=== PATIENT | female | born 1945 | race Caucasian/White ===

== ENCOUNTER 2017-04-21 18:23 | Inpatient (IN) ==
[2017-04-21 19:30] LABS: Basophils # 0.1 K/mcL (0.0-0.2); Basophils % 0.4 %; Eosinophils # 0.1 K/mcL (0.0-0.6); Eosinophils % 1.1 %; Hematocrit 42.6 % (35.3-44.9); Hemoglobin 14.4 g/dL (11.5-15.4); Immature Granulocytes % 0.3 % (0-4); Lymphocytes # 1.9 K/mcL (0.6-4.6); Lymphocytes % 15.4 %; Mean Corpuscular HGB Conc 33.8 g/dL (31.6-35.5); Mean Corpuscular Hemoglobin 34.2 pg (28.0-33.3); Mean Corpuscular Volume 101.2 fL (83.0-100.0); Mean Platelet Volume 10.3 fL (9.4-12.4); Monocytes # 0.8 K/mcL (0.0-1.3); Monocytes % 6.2 %; Neutrophils # 9.5 K/mcL (1.6-8.9); Platelet Count 286 K/mcL (140-400); Red Blood Count 4.21 M/mcL (3.82-4.97); Red Cell Distribution Width 12.6 % (11.5-14.5); Segmented Neutrophils % 76.6 %
[2017-04-21 19:47] LABS: Alanine Aminotransferase 33 Units/L (0-55); Albumin 3.4 g/dL (3.5-5.0); Albumin/Globulin Ratio 0.8 (1.1-2.2); Alkaline Phosphatase 110 Units/L (38-126); Amylase 55 Units/L (25-125); Aspartate Amino Transferase 41 Units/L (5-34); BUN/Creatinine Ratio 17 (6-26); Bilirubin,Total 0.8 mg/dL (0.2-1.2); Blood Urea Nitrogen 11 mg/dL (7-20); Calcium 9.6 mg/dL (8.6-10.8); Carbon Dioxide 24 mEq/L (19-29); Chloride 105 mEq/L (98-109); Globulin 4.1 g/dL (2.4-3.5); Glucose 96 mg/dL (70-99); Lipase 22 Units/L (8-78); Osmolality,Calculated 283 (280-300); Potassium 3.7 mEq/L (3.5-4.5); Sodium 137 mEq/L (136-145); Total Protein 7.5 g/dL (6.0-8.3); eGFR For African Americans > 60 (> 60); eGFR For Non-African Americans > 60 (> 60)
--- NOTE | 2017-04-21 19:58 | Emergency Department Note ---
Disposition Clinical Impression: Colitis Disposition: Admitted As Inpatient Condition: Fair Time of Disposition: 23:37 General Adult HPI - General Chief complaint: ED Fever Stated complaint: C-diff fever Time Seen by Provider: 04/21/17 19:25 Source: patient Limitations: no limitations Nursing Notes Reviewed: Yes Vital Signs Reviewed: Yes - History of Present Illness HPI Narrative: Patient 70-year-old female who presents after several bouts of diarrhea started early this a.m. Patient states she was recently treated for C. difficile times a few weeks ago and was treated with metronidazole in hospital. Patient was sent home with continued outpatient treatment with antibiotic that she cannot remember. Patient completed home regimen of antibiotics. Patient states she had a brief resolution of symptoms for several days and then lost her appetite times one day ago then began to have repeated bouts of loose stools times this morning. Patient states she had 7 bouts of loose stool and began to see a change in stool composition and decided to come in for evaluation for fear of return of C. difficile. Patient states that she had a fever of 101.2 at home and took Tylenol a few hours before coming to the hospital. Pain Scale: 2 - Related Data Home Medications Medication Instructions Recorded Confirmed Aspirin Enteric Coated [Aspirin EC] 81 mg PO QAM 04/21/17 04/21/17 HYDROcodone/Acet 7.5/325 mg [[place] 1 tab PO BID PRN 04/21/17 04/21/17 7.5-325 mg] L. Acidophilus/Pectin, [place] 1 each PO QAM 04/21/17 04/21/17 [Acidophilus Probiotic Capsule] Quetiapine Fumarate [SEROquel] 100 mg PO 04/21/17 04/21/17 Simvastatin [Zocor] 40 mg PO 04/21/17 04/21/17 Sotalol [Betapace] 80 mg PO BID 04/21/17 04/21/17 Tizanidine HCl 4 mg PO TID PRN 04/21/17 04/21/17 Tolterodine Tartrate [Detrol] 1 mg PO BID 04/21/17 04/21/17 Trazodone HCl 100 mg PO 04/21/17 04/21/17 Venlafaxine HCl [Venlafaxine HCl 225 mg PO QAM 04/21/17 04/21/17 ER] raNITIdine HCl [Ranitidine HCl] 150 mg PO BID 04/21/17 04/21/17 Allergies Allergy/AdvReac Type Severity Reaction Status Date / Time Penicillins Allergy See Verified 04/21/17 18:50 Comments Review of Systems: Patient admits to fever, abdominal pain, diarrhea and fatigue. Patient denies chills, chest pain, shortness of breath, lightheadedness, dizziness, paresthesias, weakness. All systems ED: reviewed and negative except as stated. Review of Systems: As Per HPI Past Medical History - Past Medical History Attestation: Yes The following information was validated with the patient. Source: patient Medical history: Reports: hyperlipidemia, hypertension, SVT, other Psychiatric history: Reports: depression - Social History Smoking Status: Never smoker Smokeless Tobacco Status: No Alcohol use: Reports: none Drug use: Reports: none Physical Exam Vital Signs Temperature 99.7 F H 04/21/17 18:50 Pulse Rate 85 04/21/17 18:50 Respiratory Rate 20 04/21/17 18:50 Blood Pressure 128/76 04/21/17 18:50 O2 Sat by Pulse Oximetry 94 04/21/17 18:50 Temperature 99.3 F 04/21/17 23:34 Pulse Rate 90 04/21/17 23:34 Respiratory Rate 16 04/21/17 23:34 Blood Pressure 176/78 04/21/17 23:34 O2 Sat by Pulse Oximetry 94 04/21/17 23:34 Oxygen Delivery Oxygen Delivery Room Air -General Appearance: Patient is a 71-year-old female who is alert and oriented 3 and in no acute distress. Patient does not appear toxic. Patient does seem mildly uncomfortable secondary to GI discomfort. -Neurological exam: Cranial nerves III-12 intact, no focal deficits observed, strength equal 5/5 bilaterally in upper and lower extremities, cerebellar motion test negative. Negative loss of sensation - Head Head exam: atraumatic, normocephalic, normal inspection - Eye Eye exam: Present: normal appearance, PERRL, EOMI, negative for scleral icterus negative for conjunctival pallor - ENT ENT exam: normal exam, normal oropharynx, mucous membranes moist - Neck Neck exam: Present: normal inspection, full ROM, trachea midline, negative JVD. Patient able to place chin on chest and hyperextended neck without issue. Patient has no posterior cervical tenderness to palpation - Chest Chest inspection: Present: Patient has bilateral equal rise and fall of chest wall. Non-tender to palpation. - Respiratory Respiratory exam: Clear to auscultation bilaterally without wheezes rales or rhonchi Cardiovascular Cardiovascular exam: Present: regular rate, normal rhythm, normal heart sounds, without murmurs rubs or gallops. - Abdominal Exam Abdominal exam: Soft but tender to palpation in the left upper quadrant and right lower quadrant. Patient grimaces with deep palpation. Bowel sounds present normoactive in all 4 quadrants. Abdomen nondistended. No rebound tenderness. - Extremities Exam Extremities exam: Present: normal inspection, full ROM. Pulses equal regular bilaterally in upper and lower extremities no edema - Back Exam Back exam: Present: normal inspection, full ROM. Absent: tenderness, CVA tenderness (R), CVA tenderness (L) - Psychiatric Psychiatric exam: Present: normal affect, normal mood - Skin Skin exam: Present: warm, dry, intact, normal color - General Limitations: no limitations General appearance: alert Course - Reevaluation(s) Reevaluation #1: Patient seen and examined. Labs ordered. Patient not have any nausea or vomiting. Patient abdominal pain mild Time: 19:58 Vital Signs Temperature 99.7 F H 04/21/17 18:50 Pulse Rate 85 04/21/17 18:50 Respiratory Rate 20 04/21/17 18:50 Blood Pressure 128/76 04/21/17 18:50 O2 Sat by Pulse Oximetry 94 04/21/17 18:50 Temperature 99.3 F 04/21/17 23:34 Pulse Rate 90 04/21/17 23:34 Respiratory Rate 16 04/21/17 23:34 Blood Pressure 176/78 04/21/17 23:34 O2 Sat by Pulse Oximetry 94 04/21/17 23:34 Oxygen Delivery Oxygen Delivery Room Air Medical Decision Making - [facility] Narrative Medical decision making narrative: Patient was seen and examined. Precautions for C. difficile were placed prior to exam. Labs were ordered for concern over possible C. difficile reinfection, concern for ischemic bowel, pancreatitis. Patient is status post cholecystectomy, appendectomy. Patient's stool was checked and was soft but formed green in color. No signs of blood visualized. Amylase and lipase negative, lactate negative, hemoglobin 14.4, WBC 12.4 and we will continue to monitor with history of recent fevers and CT scan abdomen and pelvis which showed colitis. Patient's Electrolytes showed no abnormalities. Given patient's age, fever and colitis recommend admission at this time to start patient on treatment for oral vancomycin and Flagyl for possible reinfection of C. difficile and workup to investigate other etiologies concerning patient's colitis. Recommend patient be followed up by GI for possible endoscopy if necessary to investigate the colitis as well. Patient family has been briefed and agreed to treatment and plan. Patient was accepted for admission by hospitalist. My attending Dr. Acuna discussed patient's case with the hospitalist. - Medical Records Medical records reviewed: Yes I reviewed the patient's medical records. Lumbar MRI in September 2016 IMPRESSION: Grade 1 spondylolisthesis of L4 on L5 and L5 on S1. 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 Disc and osteophytes as well as facet and ligamentum flavum hypertrophy contribute to further stenosis of the thecal sac and narrowing of the neural foramina as discussed above. - Lab Data Lab results reviewed: Yes I reviewed the patient's lab results. Lab results narrative: Short CBC 04/21/17 Range/Units 19:22 WBC 12.4 H (4.3-11.1) K/mcL Hgb 14.4 (11.5-15.4) g/dL Hct 42.6 (35.3-44.9) % Plt Count 286 (140-400) K/mcL Neutrophils # 9.5 H (1.6-8.9) K/mcL BMP 04/21/17 Range/Units 19:22 Sodium 137 (136-145) mEq/L Potassium 3.7 (3.5-4.5) mEq/L Chloride 105 (98-109) mEq/L Carbon Dioxide 24 (19-29) mEq/L BUN 11 (7-20) mg/dL Creatinine 0.64 (0.57-1.11) mg/dL Glucose 96 (70-99) mg/dL Calcium 9.6 (8.6-10.8) mg/dL Liver Function 04/21/17 Range/Units 19:22 Total Bilirubin 0.8 (0.2-1.2) mg/dL AST 41 H (5-34) Units/L ALT 33 (0-55) Units/L Alkaline Phosphatase 110 (38-126) Units/L Albumin 3.4 L (3.5-5.0) g/dL Urine 04/21/17 Range/Units 20:20 Urine Color Yellow (Yellow) Urine Clarity Cloudy A (Clear) Urine pH 7.0 (5.0-8.0) pH Units Ur Specific [place] 1.018 (1.010-1.025) Urine Protein 30 H (Neg-Trace) mg/dL Urine Glucose (UA) Normal (Normal) mg/dL Result diagrams: 04/21/17 19:22 04/21/17 19:22 Lab Results 04/21/17 04/21/17 04/21/17 Range/Units 19:22 19:22 20:20 WBC 12.4 H (4.3-11.1) K/mcL RBC 4.21 (3.82-4.97) M/mcL Hgb 14.4 (11.5-15.4) g/dL Hct 42.6 (35.3-44.9) % MCV 101.2 H (83.0-100.0) fL MCH 34.2 H (28.0-33.3) pg MCHC 33.8 (31.6-35.5) g/dL RDW 12.6 (11.5-14.5) % Plt Count 286 (140-400) K/mcL MPV 10.3 (9.4-12.4) fL Immature Gran % 0.3 (0-4) % Seg Neutrophils % 76.6 % Lymphocytes % 15.4 % Monocytes % 6.2 % Eosinophils % 1.1 % Basophils % 0.4 % Neutrophils # 9.5 H (1.6-8.9) K/mcL Lymphocytes # 1.9 (0.6-4.6) K/mcL Monocytes # 0.8 (0.0-1.3) K/mcL Eosinophils # 0.1 (0.0-0.6) K/mcL Basophils # 0.1 (0.0-0.2) K/mcL Sodium 137 (136-145) mEq/L Potassium 3.7 (3.5-4.5) mEq/L Chloride 105 (98-109) mEq/L Carbon Dioxide 24 (19-29) mEq/L BUN 11 (7-20) mg/dL Creatinine 0.64 (0.57-1.11) mg/dL Est GFR ( Amer) > 60 (> 60) Est GFR (Non-Af Amer) > 60 (> 60) BUN/Creatinine Ratio 17 (6-26) Glucose 96 (70-99) mg/dL Calculated Osmolality 283 (280-300) Lactic Acid (0.5-2.2) mmol/L Calcium 9.6 (8.6-10.8) mg/dL Total Bilirubin 0.8 (0.2-1.2) mg/dL AST 41 H (5-34) Units/L ALT 33 (0-55) Units/L Alkaline Phosphatase 110 (38-126) Units/L Serum Total Protein 7.5 (6.0-8.3) g/dL Albumin 3.4 L (3.5-5.0) g/dL Globulin 4.1 H (2.4-3.5) g/dL Albumin/Globulin Ratio 0.8 L (1.1-2.2) Amylase 55 (25-125) Units/L Lipase 22 (8-78) Units/L Urine Color Yellow (Yellow) Urine Clarity Cloudy A (Clear) Urine pH 7.0 (5.0-8.0) pH Units Ur Specific [place] 1.018 (1.010-1.025) Urine Protein 30 H (Neg-Trace) mg/dL Urine Glucose (UA) Normal (Normal) mg/dL Urine Ketones Negative (Negative) mg/dL Urine Blood Negative (Negative) Urine Nitrite Negative (Negative) Urine Bilirubin Negative (Negative) Urine Urobilinogen Normal (Normal) mg/dL Ur Leukocyte Esterase Negative (Negative) Urine Microscopic RBC 0-3 (0-3) per hpf Urine Microscopic WBC 0-3 (0-3) per hpf Ur Squamous Epith Cells Many H (None-Few) per lpf Urine Bacteria None Seen (None-Few) per hpf Hyaline Casts None Seen (None-Few) per lpf Ur Culture Indicated? NO (NO) 04/21/17 Range/Units 21:26 WBC (4.3-11.1) K/mcL RBC (3.82-4.97) M/mcL Hgb (11.5-15.4) g/dL Hct (35.3-44.9) % MCV (83.0-100.0) fL MCH (28.0-33.3) pg MCHC (31.6-35.5) g/dL RDW (11.5-14.5) % Plt Count (140-400) K/mcL MPV (9.4-12.4) fL Immature Gran % (0-4) % Seg Neutrophils % % Lymphocytes % % Monocytes % % Eosinophils % % Basophils % % Neutrophils # (1.6-8.9) K/mcL Lymphocytes # (0.6-4.6) K/mcL Monocytes # (0.0-1.3) K/mcL Eosinophils # (0.0-0.6) K/mcL Basophils # (0.0-0.2) K/mcL Sodium (136-145) mEq/L Potassium (3.5-4.5) mEq/L Chloride (98-109) mEq/L Carbon Dioxide (19-29) mEq/L BUN (7-20) mg/dL Creatinine (0.57-1.11) mg/dL Est GFR ( Amer) (> 60) Est GFR (Non-Af Amer) (> 60) BUN/Creatinine Ratio (6-26) Glucose (70-99) mg/dL Calculated Osmolality (280-300) Lactic Acid 0.9 (0.5-2.2) mmol/L Calcium (8.6-10.8) mg/dL Total Bilirubin (0.2-1.2) mg/dL AST (5-34) Units/L ALT (0-55) Units/L Alkaline Phosphatase (38-126) Units/L Serum Total Protein (6.0-8.3) g/dL Albumin (3.5-5.0) g/dL Globulin (2.4-3.5) g/dL Albumin/Globulin Ratio (1.1-2.2) Amylase (25-125) Units/L Lipase (8-78) Units/L Urine Color (Yellow) Urine Clarity (Clear) Urine pH (5.0-8.0) pH Units Ur Specific [place] (1.010-1.025) Urine Protein (Neg-Trace) mg/dL Urine Glucose (UA) (Normal) mg/dL Urine Ketones (Negative) mg/dL Urine Blood (Negative) Urine Nitrite (Negative) Urine Bilirubin (Negative) Urine Urobilinogen (Normal) mg/dL Ur Leukocyte Esterase (Negative) Urine Microscopic RBC (0-3) per hpf Urine Microscopic WBC (0-3) per hpf Ur Squamous Epith Cells (None-Few) per lpf Urine Bacteria (None-Few) per hpf Hyaline Casts (None-Few) per lpf Ur Culture Indicated? (NO) - Radiology Data Radiology results reviewed: Yes I reviewed the patient's radiology results. Abdomen/Pelvis CT 04/21/17 20:41 IMPRESSION: Colitis/proctitis. Infection versus inflammatory bowel disease is considered. Small hiatal hernia. D/ / Diaz Pearson MD / Diaz Pearson MD Interpreting Provider: Diaz Pearson MD
[2017-04-21 20:46] LABS: Bilirubin,Urine Negative (Negative); Blood,Urine Negative (Negative); Clarity,Urine Cloudy (Clear); Color,Urine Yellow (Yellow); Glucose,Urine (UA) Normal (Normal); Ketones,Urine Negative (Negative); Leukocyte Esterase,Urine Negative (Negative); Nitrite,Urine Negative (Negative); Protein,Urine 30 mg/dL (Neg-Trace); Specific Gravity,Urine 1.018 (1.010-1.025); Urobilinogen,Urine Normal (Normal)
[2017-04-21 20:50] LABS: Bacteria,Urine None Seen per hpf (None-Few); Hyaline Casts,Urine None Seen per lpf (None-Few); RBC,Urine 0-3 per hpf (0-3); Squamous Epithelial Cell,Urine Many per lpf (None-Few); WBC,Urine 0-3 per hpf (0-3)
[2017-04-21] MEDS ORDERED: metroNIDAZOLE 500 MG TABLET PO ONE (22:33)
--- NOTE | 2017-04-21 22:35 | Emergency Department Note ---
START Narrative - START START: I examined this patient and my medical decision-making was reviewed with the Resident Physician. I agree with the documented findings, disposition and treatment plan as described except to the extent set forth below. 71-year-old female patient with recurring abdominal pain and possible C. difficile infection. She does completed a course of Flagyl and possibly oral vancomycin. She now has complaints of diarrhea and fever at home. Antipyretic was given prior to arrival. No peritoneal abdominal examination. Vital signs stable urine arrival. Lactate was checked and normal. CT scan shows recurring colitis. Plan to admit for further evaluation. Discussed case with hospitalist team. We will give dose of Flagyl as well as oral vancomycin prior to admission.
[2017-04-21] MEDS: Vancomycin Oral Soln 250 MG/2.5 ML UDC PO SCH (23:05)
--- NOTE | 2017-04-21 23:21 | Internal Med History&Physical ---
Date of Encounter: 04/21/17 Time of Encounter: 23:18 Assessment and Plan (1) Colitis Current visit: Yes Status: Acute patient with a recent hx of C-diff colitis who completed oral flagyl comes in with sudden onset of signs and symptoms concerning for colitis confirmed on diagnostic imaging, it is unclear if this is infectious or inflammatory, we will check C-diff toxin in stool, ova and parasites and initiate empiric IV flagly pending microbiology report, IVF, antiemetics and pain management, she will need colonoscopy as outpatient to r/o concomitant inflammatory process (2) HTN (hypertension) Current visit: Yes Status: Chronic we will continue her home medications with BP monitoring Qualifiers: Hypertension type: essential hypertension Qualified Code(s): I10 - Essential (primary) hypertension (3) SVT (supraventricular tachycardia) Current visit: Yes Status: Chronic s/p ablation and on sotalol which we will continue (4) Depression Current visit: Yes Status: Acute we will continue her home medications Qualifiers: Depression Type: major depressive disorder Major depression recurrence: recurrent Active/Remission status: in full remission Qualified Code(s): F33.42 - Major depressive disorder, recurrent, in full remission (5) GERD (gastroesophageal reflux disease) Current visit: Yes Status: Chronic patient on H2 blockers which we will continue Qualifiers: Esophagitis presence: without esophagitis Qualified Code(s): K21.9 - Gastro -esophageal reflux disease without esophagitis Internal Medicine - H&P: HPI Chief complaint: diarrhea Admitted From: Emergency Dept Plans for Post Hospital Care: Home History of present illness: Ms. Escalera is a 71 year old female with a hx of C-Diff colitis diagnosed on and treated with oral flagyl for about 10 days comes in with diarrhea. She reports being in her usual state of health until this morning at around 1am when she woke up to have a bowel movement that was mucoid and watery. At 2am she had the same episode, from 6am she had multiple bouts associated with a fever of 101.3. She also had nausea but no vomiting. She later experienced abdominal pain that was located in the lower abdomen and the right flank. She came to the ER of [facility] for that reason. She denied any blood in the stool. This is her second such episode, last month she had a similar presentation and was diagnosed with C-Diff at another facility and was discharged on the . She had a colonoscopy a few years ago and with no concerning findings at the time. Past Med Surg Social Fam HX - Past Medical History Source: patient, old records reviewed Medical history: GERD, hyperlipidemia, hypertension, SVT (s/p ablation), other ( C-Diff colitis in 03/2017) Psychiatric history: depression - Past Surgical History Surgical History: appendectomy, cholecystectomy, orthopedic, other (back surgery ), other (uterine suspension) - Social History Smoking Status: Never smoker Smokeless Tobacco Status: No Alcohol use: none Drug use: none Current living situation: Home - Independent Activity Level: Independent ambulation - Additional Family History Additional family history: Father is from [place], mother is alive and has Alzheimer's dementia and depression Internal Medicine - H&P: Meds Aspirin Enteric Coated [Aspirin EC] 81 mg PO QAM 04/21/17 [History] HYDROcodone/Acet 7.5/325 mg [[place] 7.5-325 mg] 1 tab PO BID PRN 04/21/17 [ History] L. Acidophilus/Pectin, [place] [Acidophilus Probiotic Capsule] 1 each PO QAM 10/07 [History] Quetiapine Fumarate [SEROquel] 100 mg PO HS 04/21/17 [History] Simvastatin [Zocor] 40 mg PO HS 04/21/17 [History] Sotalol [Betapace] 80 mg PO BID 04/21/17 [History] Tizanidine HCl 4 mg PO TID PRN 04/21/17 [History] Tolterodine Tartrate [Detrol] 1 mg PO BID 04/21/17 [History] Trazodone HCl 100 mg PO HS 04/21/17 [History] Venlafaxine HCl [Venlafaxine HCl ER] 225 mg PO QAM 04/21/17 [History] raNITIdine HCl [Ranitidine HCl] 150 mg PO BID 04/21/17 [History] Allergies Penicillins Allergy (Verified 04/21/17 18:50) See Comments All Systems PM: A 10-system review of systems was performed and is negative for pertinent findings except as documented above in the HPI. - Constitutional Vitals: Temp Pulse Resp BP Pulse Ox 99.7 F H 85 16 172/80 97 04/21/17 18:50 04/21/17 23:06 04/21/17 23:06 04/21/17 23:06 04/21/17 23:06 GENERAL: Adult female, lying in bed looking uncomfortable, febrile to touch, Alert, not in acute distress, HEENT: NC/AT, EOMI, PERRLA, anicteric sclera, normal conjunctiva, supple, clear nares, moist mucous membranes, RESP: Lungs are clear to auscultation bilaterally, good AE bilaterally, No crackles or wheeze CARDIO: Normal hearts sounds; S1 and 2, RRR with no murmurs, no JVD, no ankle edema GI: Soft, full, tenderness in the right periumbilical area and the left lower quadrant with no guarding, no organomegaly felt, normal bowel sounds heard MUSCULOSKELETAL: grossly normal movements bilaterally, no deformities noted, no calf tenderness NEUROLOGIC: CN 2-12 intact grossly. No gross motor/sensory deficit appreciated, PSYCHIATRY: AAO x 3. SKIN: no skin rash or ulcers noted Internal Med - H&P Results - Labs CBC & Chem 7: 04/21/17 19:22 04/21/17 19:22 - Diagnostic Studies CT scan - abdomen Status: image reviewed by me
[2017-04-21] MEDS ORDERED: Naloxone 0.4 MG/ML INJ IVP PRN (23:59)
[2017-04-22] MEDS ORDERED: tiZANidine 4 MG TABLET PO PRN
[2017-04-22] MEDS: Famotidine 20 MG TABLET PO SCH ×3 (00:32→17:39)
[2017-04-22] MEDS: *HR* HYDROcodone/Acet 7.5/325 mg TABLET PO PRN ×3 (00:33→14:57)
[2017-04-22] MEDS: Tolterodine LA (24 HR) 2 MG CAP.ER.24H PO SCH ×2 (00:33→21:59)
[2017-04-22] MEDS: traZODone 50 MG TABLET PO SCH ×2 (00:33→21:59)
[2017-04-22] MEDS: 0.9 % Sodium Chloride 1,000 ML IVC SCH ×2 (00:35→09:45)
[2017-04-22] MEDS: Ondansetron 4 MG/2 ML VIAL IVP PRN (00:38)
[2017-04-22] MEDS: *HR* Heparin 5,000 UNIT/ML VIAL SQ SCH ×3 (05:35→22:00)
[2017-04-22 06:39] LABS: Basophils % 0.1 %; Eosinophils # 0.1 K/mcL (0.0-0.6); Eosinophils % 0.8 %; Hematocrit 41.3 % (35.3-44.9); Hemoglobin 13.3 g/dL (11.5-15.4); Immature Granulocytes % 0.2 % (0-4); Lymphocytes # 1.8 K/mcL (0.6-4.6); Lymphocytes % 18.9 %; Mean Corpuscular HGB Conc 32.2 g/dL (31.6-35.5); Mean Corpuscular Hemoglobin 33.5 pg (28.0-33.3); Mean Platelet Volume 10.9 fL (9.4-12.4); Monocytes # 0.7 K/mcL (0.0-1.3); Monocytes % 7.8 %; Neutrophils # 6.7 K/mcL (1.6-8.9); Platelet Count 244 K/mcL (140-400); Red Blood Count 3.97 M/mcL (3.82-4.97); Red Cell Distribution Width 12.7 % (11.5-14.5); Segmented Neutrophils % 72.2 %
[2017-04-22 06:49] LABS: BUN/Creatinine Ratio 16 (6-26); Blood Urea Nitrogen 10 mg/dL (7-20); Carbon Dioxide 26 mEq/L (19-29); Chloride 106 mEq/L (98-109); Glucose 99 mg/dL (70-99); Magnesium 1.8 mg/dL (1.6-2.6); Osmolality,Calculated 287 (280-300); Phosphorous 3.6 mg/dL (2.3-4.7); Potassium 3.8 mEq/L (3.5-4.5); Sodium 139 mEq/L (136-145); eGFR For African Americans > 60 (> 60); eGFR For Non-African Americans > 60 (> 60)
[2017-04-22] MEDS ORDERED: VENLAFAXINE HCL 225 MG PO SCH (09:00)
[2017-04-22] MEDS: Lactobacillus 1 EACH CAP.SPRINK PO SCH (09:32)
[2017-04-22] MEDS: Aspirin Enteric Coated 81 MG Tablet PO SCH (09:32)
[2017-04-22] MEDS: VENLAFAXINE PO SCH (09:33)
[2017-04-22] MEDS: Vancomycin Oral Soln 250 MG/2.5 ML UDC PO SCH ×4 (09:33→22:00)
[2017-04-22] MEDS: MetroNIDAZOLE 500 MG/100 ML 500 MG/100 ML BAG IVPB SCH ×2 (09:49→14:58)
--- NOTE | 2017-04-22 16:25 | Internal Med Progress Note ---
Date of Encounter: 04/22/17 Time of Encounter: 10:30 - Assessment and plan (1) Colitis Current Visit: Yes Status: Acute Assessment and plan: Acute abdominal pain and diarrhea - secondary to acute colitis likely secondary to C. difficile Continue IV Flagyl, by mouth vancomycin, IV fluids, clear liquid diet CT abdomen and pelvis - colitis and proctitis, infection versus inflammatory bowel disease C. difficile toxin - pending (recently diagnosed C. difficile colitis on PO Flagyl) Labs in a.m. (2) HTN (hypertension) Current Visit: Yes Status: Chronic Assessment and plan: Essential hypertension, controlled, monitor Qualifiers: Hypertension type: essential hypertension Qualified Code(s): I10 - Essential (primary) hypertension (3) Depression Current Visit: Yes Status: Chronic Assessment and plan: Stable, continue home meds Qualifiers: Depression Type: major depressive disorder Major depression recurrence: recurrent Active/Remission status: in full remission Qualified Code(s): F33.42 - Major depressive disorder, recurrent, in full remission (4) GERD (gastroesophageal reflux disease) Current Visit: Yes Status: Chronic Assessment and plan: Continue Pepcid Qualifiers: Esophagitis presence: without esophagitis Qualified Code(s): K21.9 - Gastro -esophageal reflux disease without esophagitis (5) DVT prophylaxis Current Visit: Yes Status: Acute Assessment and plan: Continue heparin subcutaneous - Time Spent With Patient 25 - 35 minutes - Subjective Interval history: Examined this morning. Patient is awake and alert. Not in any distress. Denies chest pain or shortness of breath. Complains of persistent lower abdominal pain which is dull and aching. Rates it 6 out of 10. Associated with nausea and vomiting. No aggravating or alleviating factors. No fever. No other acute events or complaints. - Constitutional Vitals: Temp Pulse Resp BP Pulse Ox 98.3 F 80 15 120/66 94 04/22/17 14:59 04/22/17 14:59 04/22/17 14:59 04/22/17 14:59 04/22/17 14:59 General appearance: Present: A&O X 3, pleasant, no acute distress, answers questions appropriately Exam: Generalized weakness, ill-appearing - Head Head exam: Present: atraumatic - Eye Eye exam: Present: EOMI - Neck Neck exam general surgery: Present: supple - Respiratory Respiratory exam: Present: CTAB. Absent: rales, rhonchi, stridor, wheezes, tachypnea - Cardiovascular Cardiovascular exam: Present: RRR, +S1, +S2 - GI/Abdominal GI/Abdominal exam: Present: soft, tenderness (Left lower quadrant and periumbilical tenderness present). Absent: distended, firm, guarding, rigid - Extremities Exam Extremities exam: Present: radial pulses palpable and symetrical. Absent: cyanotic, pedal edema, tenderness - Neurological Exam Neurological exam: Present: alert, oriented X3, no focal deficits. Absent: facial droop, speech deficit Internal Medicine: Result - Labs CBC & Chem 7: 04/22/17 06:05 04/22/17 06:05 Labs: Short CBC 04/22/17 Range/Units 06:05 WBC 9.2 (4.3-11.1) K/mcL Hgb 13.3 (11.5-15.4) g/dL Hct 41.3 (35.3-44.9) % Plt Count 244 (140-400) K/mcL Neutrophils # 6.7 (1.6-8.9) K/mcL BMP 04/22/17 06:05 Sodium 139 Potassium 3.8 Chloride 106 Carbon Dioxide 26 BUN 10 Creatinine 0.64 Glucose 99 Calcium 9.0 Consult Discharge Plan - Plan Referrals: Sebastian Vickers DO [Primary Care Provider] -
[2017-04-22] MEDS: Acetaminophen 325 MG TABLET PO PRN (22:53)
[2017-04-23] MEDS: MetroNIDAZOLE 500 MG/100 ML 500 MG/100 ML BAG IVPB SCH ×3 (00:17→15:50)
[2017-04-23] MEDS: 0.9 % Sodium Chloride 1,000 ML IVC SCH ×3 (03:15→20:00)
[2017-04-23] MEDS: *HR* Heparin 5,000 UNIT/ML VIAL SQ SCH ×3 (05:57→21:23)
[2017-04-23] MEDS: Famotidine 20 MG TABLET PO SCH ×2 (06:36→15:51)
[2017-04-23] MEDS: Lactobacillus 1 EACH CAP.SPRINK PO SCH (08:39)
[2017-04-23] MEDS: Aspirin Enteric Coated 81 MG Tablet PO SCH (08:39)
[2017-04-23] MEDS: VENLAFAXINE PO SCH (08:39)
[2017-04-23] MEDS: Vancomycin Oral Soln 250 MG/2.5 ML UDC PO SCH ×4 (08:41→21:23)
[2017-04-23] MEDS: Acetaminophen 325 MG TABLET PO PRN (08:53)
--- NOTE | 2017-04-23 15:48 | Internal Med Progress Note ---
Date of Encounter: 04/23/17 Time of Encounter: 10:40 - Assessment and plan (1) Colitis Current Visit: Yes Status: Acute Assessment and plan: Acute abdominal pain and diarrhea - secondary to acute colitis due to C. difficile - slowly improving Continue IV Flagyl, PO vancomycin, IV fluids, full liquid diet CT abdomen and pelvis - colitis and proctitis, infection versus inflammatory bowel disease C. difficile toxin - positive Labs in a.m. (2) HTN (hypertension) Current Visit: Yes Status: Chronic Assessment and plan: Essential hypertension, controlled, monitor Qualifiers: Hypertension type: essential hypertension Qualified Code(s): I10 - Essential (primary) hypertension (3) Depression Current Visit: Yes Status: Chronic Assessment and plan: Stable, continue home meds Qualifiers: Depression Type: major depressive disorder Major depression recurrence: recurrent Active/Remission status: in full remission Qualified Code(s): F33.42 - Major depressive disorder, recurrent, in full remission (4) GERD (gastroesophageal reflux disease) Current Visit: Yes Status: Chronic Assessment and plan: Continue Pepcid Qualifiers: Esophagitis presence: without esophagitis Qualified Code(s): K21.9 - Gastro -esophageal reflux disease without esophagitis (5) DVT prophylaxis Current Visit: Yes Status: Acute Assessment and plan: Continue heparin subcutaneous - Time Spent With Patient 25 - 35 minutes - Subjective Interval history: Examined this morning. Patient is awake and alert. Not in any distress. Denies chest pain or shortness of breath. Complains of mild lower abdominal pain which is dull and aching. Rates it 4 out of 10. Pain seems to be better, but patient continues to have mild diarrhea. No aggravating or alleviating factors. No fever. No other acute events or complaints. C. difficile toxin is positive. - Constitutional Vitals: Temp Pulse Resp BP Pulse Ox 98.5 F 59 18 105/48 95 04/23/17 11:00 04/23/17 11:00 04/23/17 11:00 04/23/17 11:00 04/23/17 11:00 General appearance: Present: A&O X 3, pleasant, no acute distress, answers questions appropriately - Head Head exam: Present: atraumatic - Eye Eye exam: Present: EOMI - ENT ENT exam: Present: mucous membranes dry - Neck Neck exam general surgery: Present: supple - Respiratory Respiratory exam: Present: CTAB. Absent: rales, rhonchi, stridor, wheezes, tachypnea - Cardiovascular Cardiovascular exam: Present: RRR, +S1, +S2 - GI/Abdominal GI/Abdominal exam: Present: soft, tenderness (Mild epigastric tenderness). Absent: distended, firm, guarding, rigid, no peritoneal signs - Extremities Exam Extremities exam: Present: radial pulses palpable and symetrical. Absent: cyanotic, pedal edema, tenderness - Neurological Exam Neurological exam: Present: alert, oriented X3, no focal deficits Internal Medicine: Result - Labs CBC & Chem 7: 04/22/17 06:05 04/22/17 06:05 Consult Discharge Plan - Plan Referrals: Sebastian Vickers DO [Primary Care Provider] - 04/30/17 4:00 pm
[2017-04-23] MEDS: traZODone 50 MG TABLET PO SCH (21:22)
[2017-04-23] MEDS: *HR* HYDROcodone/Acet 7.5/325 mg TABLET PO PRN (21:23)
[2017-04-24] MEDS: MetroNIDAZOLE 500 MG/100 ML 500 MG/100 ML BAG IVPB SCH ×4 (00:14→23:27)
[2017-04-24] MEDS: *HR* Heparin 5,000 UNIT/ML VIAL SQ SCH ×3 (06:31→22:36)
[2017-04-24] MEDS: Famotidine 20 MG TABLET PO SCH ×2 (06:31→16:29)
[2017-04-24] MEDS: 0.9 % Sodium Chloride 1,000 ML IVC SCH ×2 (06:31→22:37)
[2017-04-24] MEDS: Lactobacillus 1 EACH CAP.SPRINK PO SCH (07:36)
[2017-04-24] MEDS: Aspirin Enteric Coated 81 MG Tablet PO SCH (07:36)
[2017-04-24] MEDS: VENLAFAXINE PO SCH (07:39)
[2017-04-24] MEDS: Vancomycin Oral Soln 250 MG/2.5 ML UDC PO SCH ×4 (08:11→22:37)
[2017-04-24] MEDS ORDERED: Acetaminophen 325 MG TABLET PO PRN (11:30)
[2017-04-24] MEDS: Ondansetron 4 MG/2 ML VIAL IVP PRN (13:46)
--- NOTE | 2017-04-24 14:38 | Internal Med Progress Note ---
Date of Encounter: 04/24/17 Time of Encounter: 09:15 - Assessment and plan (1) Colitis Current Visit: Yes Status: Acute Assessment and plan: Acute abdominal pain and diarrhea - secondary to acute colitis due to C. difficile - slowly improving Continue IV Flagyl, PO Vancomycin, IV fluids, clear liquid diet CT abdomen and pelvis - colitis and proctitis, infection versus inflammatory bowel disease C. difficile toxin - positive Labs in a.m., anticipate discharge soon (2) HTN (hypertension) Current Visit: Yes Status: Chronic Assessment and plan: Essential hypertension, controlled, monitor Qualifiers: Hypertension type: essential hypertension Qualified Code(s): I10 - Essential (primary) hypertension (3) Depression Current Visit: Yes Status: Chronic Assessment and plan: Stable, continue home meds Qualifiers: Depression Type: major depressive disorder Major depression recurrence: recurrent Active/Remission status: in full remission Qualified Code(s): F33.42 - Major depressive disorder, recurrent, in full remission (4) GERD (gastroesophageal reflux disease) Current Visit: Yes Status: Chronic Assessment and plan: Continue Pepcid Qualifiers: Esophagitis presence: without esophagitis Qualified Code(s): K21.9 - Gastro -esophageal reflux disease without esophagitis (5) DVT prophylaxis Current Visit: Yes Status: Acute Assessment and plan: Continue heparin subcutaneous - Time Spent With Patient 25 - 35 minutes - Subjective Interval history: Examined this morning. Patient is awake and alert. Not in any distress. Denies chest pain or shortness of breath. Complains of mild lower abdominal pain which is dull and aching. Rates it 4 out of 10. Patient continues to have mild diarrhea. Diarrhea seems to be worse with food intake. Will switch back to clear liquid diet today. No blood in stool. No aggravating or alleviating factors. No fever. No other acute events or complaints. C. difficile toxin is positive. - Constitutional Vitals: Temp Pulse Resp BP Pulse Ox 98.1 F 76 16 154/70 94 04/24/17 06:51 04/24/17 06:51 04/24/17 06:51 04/24/17 06:51 04/24/17 06:51 General appearance: Present: A&O X 3, pleasant, no acute distress, answers questions appropriately - Head Head exam: Present: atraumatic - Eye Eye exam: Present: EOMI - ENT ENT exam: Present: mucous membranes moist - Neck Neck exam general surgery: Present: supple - Respiratory Respiratory exam: Present: CTAB. Absent: rales, rhonchi, stridor, wheezes, tachypnea - Cardiovascular Cardiovascular exam: Present: RRR, +S1, +S2 - GI/Abdominal GI/Abdominal exam: Present: soft, no peritoneal signs. Absent: distended, firm , guarding, rigid, tenderness - Extremities Exam Extremities exam: Present: radial pulses palpable and symetrical. Absent: cyanotic, pedal edema, tenderness - Neurological Exam Neurological exam: Present: alert, oriented X3, no focal deficits Internal Medicine: Result - Labs CBC & Chem 7: 04/22/17 06:05 04/22/17 06:05 Consult Discharge Plan - Plan Referrals: Sebastian Vickers DO [Primary Care Provider] - 04/30/17 4:00 pm
[2017-04-24] MEDS: traZODone 50 MG TABLET PO SCH (22:36)
[2017-04-24] MEDS: amLODIPine 5 MG TABLET PO SCH (23:26)
[2017-04-24] MEDS: *HR* HYDROcodone/Acet 7.5/325 mg TABLET PO PRN (23:27)
[2017-04-25] MEDS: *HR* Heparin 5,000 UNIT/ML VIAL SQ SCH ×3 (05:23→22:33)
[2017-04-25] MEDS: Vancomycin Oral Soln 250 MG/2.5 ML UDC PO SCH ×4 (08:02→22:32)
[2017-04-25] MEDS: MetroNIDAZOLE 500 MG/100 ML 500 MG/100 ML BAG IVPB SCH ×3 (08:02→22:33)
[2017-04-25] MEDS: Lactobacillus 1 EACH CAP.SPRINK PO SCH (08:03)
[2017-04-25] MEDS: amLODIPine 5 MG TABLET PO SCH (08:03)
[2017-04-25] MEDS: Aspirin Enteric Coated 81 MG Tablet PO SCH (08:04)
[2017-04-25] MEDS: Famotidine 20 MG TABLET PO SCH ×2 (08:04→15:18)
[2017-04-25] MEDS: VENLAFAXINE PO SCH (08:06)
[2017-04-25] MEDS: 0.9 % Sodium Chloride 1,000 ML IVC SCH (10:10)
--- NOTE | 2017-04-25 15:48 | Internal Med Progress Note ---
Date of Encounter: 04/25/17 Time of Encounter: 09:55 - Assessment and plan (1) Colitis Current Visit: Yes Status: Acute Assessment and plan: Acute abdominal pain and diarrhea - secondary to acute colitis due to C. difficile - slowly improving Continue IV Flagyl, PO Vancomycin, IV fluids, regular diet CT abdomen and pelvis - colitis and proctitis, infection versus inflammatory bowel disease C. difficile toxin - positive Labs in a.m., anticipate discharge home in a.m. (2) HTN (hypertension) Current Visit: Yes Status: Chronic Assessment and plan: Essential hypertension, controlled, monitor Qualifiers: Hypertension type: essential hypertension Qualified Code(s): I10 - Essential (primary) hypertension (3) Depression Current Visit: Yes Status: Chronic Assessment and plan: Stable, continue home meds Qualifiers: Depression Type: major depressive disorder Major depression recurrence: recurrent Active/Remission status: in full remission Qualified Code(s): F33.42 - Major depressive disorder, recurrent, in full remission (4) GERD (gastroesophageal reflux disease) Current Visit: Yes Status: Chronic Assessment and plan: Continue Pepcid Qualifiers: Esophagitis presence: without esophagitis Qualified Code(s): K21.9 - Gastro -esophageal reflux disease without esophagitis (5) DVT prophylaxis Current Visit: Yes Status: Acute Assessment and plan: Continue heparin subcutaneous - Time Spent With Patient 25 - 35 minutes - Subjective Interval history: Examined this morning. Patient is awake and alert. Not in any distress. Sitting up in chair. Denies chest pain or shortness of breath. States her abdominal pain and diarrhea have now improved. Tolerating oral diet well. No aggravating or alleviating factors. No fever. No other acute events or complaints. C. difficile toxin is positive. Anticipate discharge home in a.m. - Constitutional Vitals: Temp Pulse Resp BP Pulse Ox 98.1 F 76 17 148/66 97 04/25/17 14:46 04/25/17 14:46 04/25/17 14:46 04/25/17 14:46 04/25/17 14:46 General appearance: Present: A&O X 3, pleasant, no acute distress, answers questions appropriately - Head Head exam: Present: atraumatic - Eye Eye exam: Present: EOMI - ENT ENT exam: Present: mucous membranes moist - Neck Neck exam general surgery: Present: supple - Respiratory Respiratory exam: Present: CTAB. Absent: rales, rhonchi, stridor, wheezes, tachypnea - Cardiovascular Cardiovascular exam: Present: RRR, +S1, +S2 - GI/Abdominal GI/Abdominal exam: Present: soft, no peritoneal signs. Absent: distended, firm , guarding, rigid, tenderness - Extremities Exam Extremities exam: Present: pedal edema (Mild bilateral), radial pulses palpable and symetrical. Absent: cyanotic, tenderness - Neurological Exam Neurological exam: Present: alert, oriented X3, no focal deficits Internal Medicine: Result - Labs CBC & Chem 7: 04/22/17 06:05 04/22/17 06:05 Consult Discharge Plan - Plan Referrals: Sebastian Vickers DO [Primary Care Provider] - 04/30/17 4:00 pm
[2017-04-25] MEDS ORDERED: amLODIPine 5 MG TABLET PO ONE (20:40)
[2017-04-25] MEDS: traZODone 50 MG TABLET PO SCH (22:30)
[2017-04-26] MEDS: 0.9 % Sodium Chloride 1,000 ML IVC SCH ×2 (02:25→17:02)
[2017-04-26] MEDS: *HR* Heparin 5,000 UNIT/ML VIAL SQ SCH ×3 (05:55→21:16)
[2017-04-26] MEDS: amLODIPine 5 MG TABLET PO SCH (09:08)
[2017-04-26] MEDS: Famotidine 20 MG TABLET PO SCH ×2 (09:09→17:03)
[2017-04-26] MEDS: Vancomycin Oral Soln 250 MG/2.5 ML UDC PO SCH ×4 (09:09→21:16)
[2017-04-26] MEDS: MetroNIDAZOLE 500 MG/100 ML 500 MG/100 ML BAG IVPB SCH ×3 (09:09→23:52)
[2017-04-26] MEDS: VENLAFAXINE PO SCH (09:09)
[2017-04-26] MEDS: Lactobacillus 1 EACH CAP.SPRINK PO SCH ×3 (09:09→21:15)
[2017-04-26] MEDS: Aspirin Enteric Coated 81 MG Tablet PO SCH (09:09)
[2017-04-26] MEDS: *HR* HYDROcodone/Acet 7.5/325 mg TABLET PO PRN ×2 (11:28→21:21)
--- NOTE | 2017-04-26 15:20 | Internal Med Progress Note ---
Date of Encounter: 04/26/17 Time of Encounter: 08:50 - Assessment and plan (1) Colitis Current Visit: Yes Status: Acute Assessment and plan: Acute abdominal pain and diarrhea - secondary to acute colitis due to C. difficile - improved Continue IV Flagyl, PO Vancomycin, IV fluids, regular diet CT abdomen and pelvis - colitis and proctitis, infection versus inflammatory bowel disease C. difficile toxin - positive Labs in a.m., anticipate discharge tomorrow (2) HTN (hypertension) Current Visit: Yes Status: Chronic Assessment and plan: Essential hypertension, controlled, monitor Qualifiers: Hypertension type: essential hypertension Qualified Code(s): I10 - Essential (primary) hypertension (3) Depression Current Visit: Yes Status: Chronic Assessment and plan: Stable, continue home meds Qualifiers: Depression Type: major depressive disorder Major depression recurrence: recurrent Active/Remission status: in full remission Qualified Code(s): F33.42 - Major depressive disorder, recurrent, in full remission (4) GERD (gastroesophageal reflux disease) Current Visit: Yes Status: Chronic Assessment and plan: Continue Pepcid Qualifiers: Esophagitis presence: without esophagitis Qualified Code(s): K21.9 - Gastro -esophageal reflux disease without esophagitis (5) DVT prophylaxis Current Visit: Yes Status: Acute Assessment and plan: Continue heparin subcutaneous - Time Spent With Patient 25 - 35 minutes - Subjective Interval history: Examined this morning. Patient is awake and alert. Not in any distress. Sitting up in chair. Denies chest pain or shortness of breath. States her abdominal pain and diarrhea have now improved. One episode of diarrhea last night. Patient wants to stay one more day. Tolerating oral diet well. No aggravating or alleviating factors. No fever. No other acute events or complaints. C. difficile toxin is positive. Anticipate discharge home tomorrow. - Constitutional Vitals: Temp Pulse Resp BP Pulse Ox 98.5 F 76 15 154/80 92 04/26/17 10:41 04/26/17 10:41 04/26/17 10:41 04/26/17 10:41 04/26/17 10:41 General appearance: Present: A&O X 3, pleasant, no acute distress, answers questions appropriately - Head Head exam: Present: atraumatic - Eye Eye exam: Present: EOMI - ENT ENT exam: Present: mucous membranes moist - Neck Neck exam general surgery: Present: supple - Respiratory Respiratory exam: Present: CTAB, tachypnea. Absent: rales, rhonchi, stridor, wheezes - Cardiovascular Cardiovascular exam: Present: RRR, +S1, +S2 - GI/Abdominal GI/Abdominal exam: Present: soft. Absent: distended, firm, guarding, rigid, tenderness - Extremities Exam Extremities exam: Present: radial pulses palpable and symetrical. Absent: cyanotic, pedal edema, tenderness - Neurological Exam Neurological exam: Present: alert, oriented X3, no focal deficits Internal Medicine: Result - Labs CBC & Chem 7: 04/22/17 06:05 04/22/17 06:05 Consult Discharge Plan - Plan Referrals: Sebastian Vickers DO [Primary Care Provider] - 04/30/17 4:00 pm
[2017-04-26] MEDS: traZODone 50 MG TABLET PO SCH (21:14)
[2017-04-27] MEDS: 0.9 % Sodium Chloride 1,000 ML IVC SCH ×2 (05:55→07:35)
[2017-04-27] MEDS: *HR* Heparin 5,000 UNIT/ML VIAL SQ SCH (06:35)
[2017-04-27 07:07] VITALS: BP 126/62
[2017-04-27 07:44] LABS: Ova & Parasite Stain NEGATIVE (Negative)
--- NOTE | 2017-04-27 10:30 | Discharge Summary ---
Date of Encounter: 04/27/17 Time of Encounter: 09:10 - Discharge Diagnosis (1) Colitis Priority: Primary Status: Acute Comments: Acute abdominal pain and diarrhea - secondary to acute colitis due to C. difficile - improved Continue PO Flagyl, PO Vancomycin, regular diet CT abdomen and pelvis - colitis and proctitis, infection versus inflammatory bowel disease C. difficile toxin - positive follow up with PCP (2) HTN (hypertension) Priority: Secondary Status: Chronic Comments: Essential hypertension, controlled Qualifiers: Hypertension type: essential hypertension Qualified Code(s): I10 - Essential (primary) hypertension (3) Depression Priority: Secondary Status: Chronic Comments: Stable, continue home meds Qualifiers: Depression Type: major depressive disorder Major depression recurrence: recurrent Active/Remission status: in full remission Qualified Code(s): F33.42 - Major depressive disorder, recurrent, in full remission (4) GERD (gastroesophageal reflux disease) Priority: Secondary Status: Chronic Qualifiers: Esophagitis presence: without esophagitis Qualified Code(s): K21.9 - Gastro -esophageal reflux disease without esophagitis - Discharge Medications Prescriptions: metroNIDAZOLE [Flagyl] 500 mg PO TID 10 Days Vancomycin HCl 125 mg PO QID 10 Days Home Medications: Aspirin Enteric Coated [Aspirin EC] 81 mg PO QAM 04/21/17 [History] HYDROcodone/Acet 7.5/325 mg [[place] 7.5-325 mg] 1 tab PO BID PRN 04/21/17 [ History] L. Acidophilus/Pectin, [place] [Acidophilus Probiotic Capsule] 1 each PO QAM 10/07 [History] Quetiapine Fumarate [Seroquel] 100 mg PO HS 04/21/17 [History] Simvastatin [Zocor] 40 mg PO HS 04/21/17 [History] Sotalol [Betapace] 80 mg PO BID 04/21/17 [History] Tizanidine HCl 4 mg PO TID PRN 04/21/17 [History] Tolterodine Tartrate [Detrol] 0.5 mg PO BID 04/21/17 [History] Trazodone HCl 100 mg PO HS 04/21/17 [History] Venlafaxine HCl [Venlafaxine HCl ER] 225 mg PO QAM 04/21/17 [History] raNITIdine HCl [Ranitidine HCl] 150 mg PO BID 04/21/17 [History] Vancomycin HCl 125 mg PO QID 10 Days 04/27/17 [Rx] metroNIDAZOLE [Flagyl] 500 mg PO TID 10 Days 04/27/17 [Rx] Allergies/Adverse Reactions: Allergies Penicillins Allergy (Verified 04/21/17 18:50) See Comments Date of admission: 04/22/17 16:22 Primary care physician: Sebastian Vickers Consults: 04/24/17 10:10 Consult to Physical Therapy [CONS] Routine Comment: Evaluate, develop and implement POC Reason for Consult: Dr. bia arreola to be evaluated for walker 04/24/17 10:43 Consult to Occupational Therapy [CONS] Routine Comment: Evaluate, develop and implement POC Reason for Consult: Evaluate for possible need for PT/OT at home Consult to Physical Therapy [CONS] Routine Comment: Evaluate, develop and implement POC Reason for Consult: Physician wants walker in room if possible Anticipated date of discharge: 04/27/17 - Patient Status Disposition: Home Health Service Condition: Good Overall status at discharge: patient is back to baseline - Discharge Instructions Instructions: Metronidazole (By mouth), Vancomycin (By mouth) Follow Up With: Sebastian Vickers DO [Primary Care Provider] - 04/30/17 4:00 pm - Diet and Activity Activity: increase activity as tolerated Diet: low fat, low cholesterol Hospital course: Ms. Escalera is a 71 year old female with past medical history of GERD, hyperlipidemia, hypertension, SVT and depression. Patient presented to the ED with complaints of diarrhea and abdominal pain. Patient was recently diagnosed with C. difficile colitis and was treated with by mouth Flagyl. Patient stated her symptoms started again. She also had subjective fever. Her abdominal pain and flank pain worsening. She denied any blood in stool. Patient was admitted for C. difficile colitis. CT of abdomen revealed colitis and proctitis. C. difficile toxin is positive. Patient was started on IV Flagyl and by mouth vancomycin in view of recurrent C. difficile. She was initially kept nothing by mouth. She was then slowly started on clear liquids and then to regular diet. Patient's abdominal pain and diarrhea slowly started to improve. Patient was continued on her home medications as well. She tolerated all meds well. She is ambulating well and tolerating oral diet well at this time. She had no other acute events or complications during her stay in the hospital. She was also started on probiotics. Patient and her family member have been explained about her condition and plan of care in detail. Understood and agreed. No unanswered questions. Patient has been advised to continue Flagyl and vancomycin by mouth at home for the next 10 days. Patient understood and agreed. She has also been advised to follow-up with her primary care physician. Patient has already been active with home health services and is being discharged with the same. Patient is being discharged in stable condition. - Time Spent with Patient Total time spent providing and/or coordinating discharge services: Greater than 30 minutes - Constitutional Vitals: Temp Pulse Resp BP Pulse Ox 99.2 F 85 16 126/62 97 04/27/17 07:05 04/27/17 07:05 04/27/17 07:05 04/27/17 07:05 04/27/17 07:05 General appearance: Present: A&O X 3, pleasant, no acute distress, answers questions appropriately - Head Head exam: Present: atraumatic - Eye Eye exam: Present: EOMI - ENT ENT exam: Present: mucous membranes moist - Neck Neck exam general surgery: Present: supple - Respiratory Respiratory exam: Present: CTAB. Absent: rales, rhonchi, stridor, wheezes, tachypnea - Cardiovascular Cardiovascular exam: Present: RRR, +S1, +S2 - GI/Abdominal GI/Abdominal exam: Present: soft. Absent: distended, firm, guarding, rigid, tenderness - Extremities Exam Extremities exam: Present: radial pulses palpable and symetrical. Absent: cyanotic, pedal edema - Neurological Exam Neurological exam: Present: alert, oriented X3, no focal deficits
[2017-04-27] MEDS: Aspirin Enteric Coated 81 MG Tablet PO SCH (10:42)
[2017-04-27] MEDS: VENLAFAXINE PO SCH (10:42)
[2017-04-27] MEDS: Vancomycin Oral Soln 250 MG/2.5 ML UDC PO SCH (10:42)
[2017-04-27] MEDS: MetroNIDAZOLE 500 MG/100 ML 500 MG/100 ML BAG IVPB SCH (10:44)
[2017-04-27] MEDS: Famotidine 20 MG TABLET PO SCH (10:44)
[2017-04-27] MEDS: Lactobacillus 1 EACH CAP.SPRINK PO SCH ×2 (10:44→10:45)
[2017-04-27] MEDS: amLODIPine 5 MG TABLET PO SCH (10:45)
--- NOTE | 2017-04-27 19:20 | Physician Discharge Referral ---
Home Health/Hosp Referral Info Transfer to: Home Health Provider in Charge Post Discharge: PCP - Diagnosis (1) Colitis Priority: Primary Status: Acute (2) HTN (hypertension) Priority: Secondary Status: Chronic (3) Depression Priority: Secondary Status: Chronic (4) GERD (gastroesophageal reflux disease) Priority: Secondary Status: Chronic - Respiratory Orders Smoking Cessation: Smoking cessation has been advised. For more information, call the [place] Tobacco Quit Line at 7-170-LJXT-NOW. - Transfer Medications Prescriptions: metroNIDAZOLE [Flagyl] 500 mg PO TID 10 Days Vancomycin HCl 125 mg PO QID 10 Days Home Medications: Aspirin Enteric Coated [Aspirin EC] 81 mg PO QAM 04/21/17 [History] HYDROcodone/Acet 7.5/325 mg [[place] 7.5-325 mg] 1 tab PO BID PRN 04/21/17 [ History] L. Acidophilus/Pectin, [place] [Acidophilus Probiotic Capsule] 1 each PO QAM 10/07 [History] Quetiapine Fumarate [Seroquel] 100 mg PO HS 04/21/17 [History] Simvastatin [Zocor] 40 mg PO HS 04/21/17 [History] Sotalol [Betapace] 80 mg PO BID 04/21/17 [History] Tizanidine HCl 4 mg PO TID PRN 04/21/17 [History] Tolterodine Tartrate [Detrol] 0.5 mg PO BID 04/21/17 [History] Trazodone HCl 100 mg PO HS 04/21/17 [History] Venlafaxine HCl [Venlafaxine HCl ER] 225 mg PO QAM 04/21/17 [History] raNITIdine HCl [Ranitidine HCl] 150 mg PO BID 04/21/17 [History] Vancomycin HCl 125 mg PO QID 10 Days 04/27/17 [Rx] metroNIDAZOLE [Flagyl] 500 mg PO TID 10 Days 04/27/17 [Rx] Allergies/Adverse Reactions: Allergies Penicillins Allergy (Verified 04/21/17 18:50) See Comments Certification: Further, I certify that my clinical findings support that this patient is homebound (i.e. absences from home require considerable and taxing effort and are for medical reasons or taoist services or infrequently or short duration when for other reasons) because: Homebound Reason: Patient requires assistance of a person or device to safely leave home Attestation: My signature below is to certify that this patient is under my care and that I, or nurse practitioner, or a physician's gynecological assistant working with me, has a face-to -face encounter with this patient.
== END 2017-04-27 12:45 | disposition home health service (06) | DRG 372 ==
LOC: 3ANU 18:23 → EMEROO 18:23 → 3ANU 23:22
PROVIDERS: ADMIT Family Medicine; ATTEND Family Medicine

== ENCOUNTER 2022-01-05 16:19 | Inpatient (IN) ==
[2022-01-05] MEDS ORDERED: Ipratropium/Albuterol Neb 3 ML IH ONE (16:43)
[2022-01-05 17:01] LABS: Basophils % 0.3 %; Eosinophils % 0.2 %; Hematocrit 43.6 % (35.3-44.9); Immature Granulocytes % 0.6 % (0-4); Lymphocytes # 2.3 K/mcL (0.6-4.6); Lymphocytes % 15.9 %; Mean Corpuscular HGB Conc 34.4 g/dL (31.6-35.5); Mean Corpuscular Hemoglobin 34.3 pg (28.0-33.3); Mean Corpuscular Volume 99.8 fL (83.0-100.0); Mean Platelet Volume 10.4 fL (9.4-12.4); Monocytes # 1.2 K/mcL (0.0-1.3); Monocytes % 8.6 %; Neutrophils # 10.5 K/mcL (1.6-8.9); Platelet Count 267 K/mcL (140-400); Red Blood Count 4.37 M/mcL (3.82-4.97); Red Cell Distribution Width 12.5 % (11.5-14.5); Segmented Neutrophils % 74.4 %; White Blood Count 14.1 K/mcL (4.3-11.1)
[2022-01-05 17:29] LABS: Alanine Aminotransferase 30 Units/L (7-52); Albumin 3.9 g/dL (3.5-5.7); Albumin/Globulin Ratio 1.3 (1.1-2.2); Alkaline Phosphatase 78 Units/L (34-104); Aspartate Amino Transferase 27 Units/L (13-39); BUN/Creatinine Ratio 25 (6-26); Bilirubin,Direct 0.3 mg/dL (0.0-0.2); Bilirubin,Indirect 1.1 mg/dL (0.0-1.0); Bilirubin,Total 1.4 mg/dL (0.3-1.0); Blood Urea Nitrogen 17 mg/dL (8-23); Calcium 9.7 mg/dL (8.6-10.3); Carbon Dioxide 24 mEq/L (23-29); Chloride 100 mEq/L (98-107); Globulin 3.1 g/dL (2.4-3.5); Glucose 97 mg/dL (70-105); Lipase 14 Units/L (11-82); Osmolality,Calculated 283 (280-300); Potassium 3.4 mEq/L (3.5-5.1); Sodium 136 mEq/L (136-145); Troponin I 0.04 ng/mL (< 0.04); eGFR For African Americans > 60 (> 60); eGFR For Non-African Americans > 60 (> 60)
[2022-01-05] MEDS ORDERED: Azithromycin 500 MG in 0.9 % Sodium Chloride 250 ML IVPB ONE (17:30)
[2022-01-05] MEDS ORDERED: cefTRIAXone 1,000 MG in 0.9 % Sodium Chloride 10 ML IVP ONE (17:30)
[2022-01-05] MEDS ORDERED: 0.9 % Sodium Chloride 1,000 ML IVC ONE (17:31)
[2022-01-05] MEDS ORDERED: Ondansetron 4 MG/2 ML VIAL IVP PRN (17:40)
[2022-01-05] MEDS ORDERED: Naloxone 0.4 MG/ML INJ IVP PRN (17:40)
[2022-01-05] MEDS ORDERED: Ipratropium/Albuterol Neb 3 ML IH PRN (17:41)
[2022-01-05] MEDS ORDERED: Melatonin 3 MG TABLET PO PRN (18:01)
[2022-01-05] MEDS ORDERED: Potassium Chloride Elixir 20 MEQ/15 ML UDC PO ONE (18:04)
[2022-01-05 18:09] LABS: Influenza A PCR Negative (Negative); Influenza B PCR Negative (Negative); Resp. Syncytial Virus PCR Negative (Negative)
[2022-01-05 18:16] LABS: SARS-CoV-2 by PCR (In House) Negative (Negative)
[2022-01-05] MEDS: Acetaminophen 325 MG TABLET PO PRN (20:25)
[2022-01-05] MEDS: Doxycycline 100 MG in 0.9 % Sodium Chloride Mini Bag 100 ML IVPB SCH (20:32)
[2022-01-06 05:13] LABS: Adenovirus F 40/41 PCR Not detected (Not detect); Astrovirus PCR Not detected (Not detect); C.difficile Toxin A/B Gene PCR Not detected (Not detect); Campylobacter by PCR Not detected (Not detect); Cryptosporidium by PCR Not detected (Not detect); Cyclospora cayetanensis PCR Not detected (Not detect); E. coli O157 by PCR Not detected (Not detect); Entamoeba histolytica PCR Not detected (Not detect); Enteroaggregative E.coli(EAEC) Not detected (Not detect); Enteropathogenic E.coli(EPEC) Not detected (Not detect); Enterotoxigenic E.coli (ETEC) Not detected (Not detect); Giardia lamblia PCR Not detected (Not detect); Norovirus GI/GII PCR Not detected (Not detect); Plesiomonas shigelloides PCR Not detected (Not detect); Rotavirus A PCR Not detected (Not detect); Salmonella PCR Not detected (Not detect); Shig/EnteroinvasiveE coli EIEC Not detected (Not detect); Shigalike tox-prod E coli STEC Not detected (Not detect); Vibrio PCR Not detected (Not detect); Vibrio cholerae PCR Not detected (Not detect); Yersinia enterocolitica PCR Not detected (Not detect)
[2022-01-06 05:14] LABS: Sapovirus PCR Not detected (Not detect)
[2022-01-06] MEDS: Doxycycline 100 MG in 0.9 % Sodium Chloride Mini Bag 100 ML IVPB SCH ×2 (06:02→17:37)
[2022-01-06] MEDS: *HR* Heparin 5,000 UNIT/ML VIAL SQ SCH ×2 (06:03→17:36)
[2022-01-06 06:27] LABS: Basophils % 0.2 %; Eosinophils % 0.3 %; Hematocrit 38.7 % (35.3-44.9); Immature Granulocytes % 0.7 % (0-4); Lymphocytes % 15.8 %; Mean Corpuscular HGB Conc 34.4 g/dL (31.6-35.5); Mean Corpuscular Hemoglobin 34.2 pg (28.0-33.3); Mean Corpuscular Volume 99.5 fL (83.0-100.0); Mean Platelet Volume 10.7 fL (9.4-12.4); Monocytes # 1.3 K/mcL (0.0-1.3); Monocytes % 10.1 %; Neutrophils # 9.4 K/mcL (1.6-8.9); Platelet Count 248 K/mcL (140-400); Red Blood Count 3.89 M/mcL (3.82-4.97); Red Cell Distribution Width 12.7 % (11.5-14.5); Segmented Neutrophils % 72.9 %; White Blood Count 12.9 K/mcL (4.3-11.1)
[2022-01-06 06:32] LABS: Hemoglobin 13.3 g/dL (11.5-15.4)
[2022-01-06 06:56] LABS: BUN/Creatinine Ratio 26 (6-26); Blood Urea Nitrogen 11 mg/dL (8-23); Calcium 9.2 mg/dL (8.6-10.3); Carbon Dioxide 21 mEq/L (23-29); Chloride 105 mEq/L (98-107); Glucose 90 mg/dL (70-105); Magnesium 1.7 mg/dL (1.6-2.6); Osmolality,Calculated 281 (280-300); Potassium 3.6 mEq/L (3.5-5.1); Sodium 136 mEq/L (136-145); Troponin I 0.04 ng/mL (< 0.04); eGFR For African Americans > 60 (> 60); eGFR For Non-African Americans > 60 (> 60)
[2022-01-06] MEDS: Venlafaxine XR (24 HR) 150 MG CAP.ER.24H PO SCH (07:57)
[2022-01-06] MEDS: amLODIPine 5 MG TABLET PO SCH (07:58)
[2022-01-06] MEDS: lisinopriL 20 MG TABLET PO SCH (07:58)
[2022-01-06] MEDS ORDERED: Ringers Solution, Lactated 1,000 ML IVC ONE (09:22)
[2022-01-06] MEDS: *HR* Metoprolol 5 MG/5 ML VIAL IVP PRN ×3 (14:14→14:54)
[2022-01-06] MEDS: Acetaminophen 325 MG TABLET PO PRN (14:50)
[2022-01-06 14:52] LABS: BUN/Creatinine Ratio 20 (6-26); Blood Urea Nitrogen 9 mg/dL (8-23); Calcium 9.3 mg/dL (8.6-10.3); Carbon Dioxide 22 mEq/L (23-29); Chloride 102 mEq/L (98-107); Glucose 149 mg/dL (70-105); Magnesium 1.5 mg/dL (1.6-2.6); Osmolality,Calculated 277 (280-300); Phosphorous 1.3 mg/dL (2.7-4.5); Potassium 3.2 mEq/L (3.5-5.1); Sodium 133 mEq/L (136-145); eGFR For African Americans > 60 (> 60); eGFR For Non-African Americans > 60 (> 60)
[2022-01-06 15:04] LABS: Thyroid Stimulating Hormone 0.387 mcIU/mL (0.340-5.600)
[2022-01-06] MEDS ORDERED: Potassium Phosphate 44 MEQ in 0.9 % Sodium Chloride 250 ML IVPB ONE (16:44)
[2022-01-06] MEDS ORDERED: cefTRIAXone 1,000 MG in Water for inj. (sterile) 10 ML IVP SCH (18:00)
[2022-01-06] MEDS ORDERED: Azithromycin 500 MG in 0.9 % Sodium Chloride 250 ML IVPB SCH (19:00)
[2022-01-06] MEDS ORDERED: traZODone 50 MG TABLET PO SCH (21:30)
[2022-01-07] MEDS: *HR* Heparin 5,000 UNIT/ML VIAL SQ SCH (05:42)
[2022-01-07] MEDS: Doxycycline 100 MG in 0.9 % Sodium Chloride Mini Bag 100 ML IVPB SCH (05:43)
[2022-01-07 06:16] VITALS: O2SAT 93
[2022-01-07] MEDS: Venlafaxine XR (24 HR) 150 MG CAP.ER.24H PO SCH (09:14)
[2022-01-07] MEDS: lisinopriL 20 MG TABLET PO SCH (09:14)
[2022-01-07] MEDS: amLODIPine 5 MG TABLET PO SCH (09:14)
[2022-01-07] MEDS: Acetaminophen 325 MG TABLET PO PRN (09:16)
[2022-01-07 09:36] LABS: Basophils % 0.3 %; Eosinophils # 0.1 K/mcL (0.0-0.6); Eosinophils % 0.4 %; Lymphocytes # 2.8 K/mcL (0.6-4.6); Lymphocytes % 22.2 %; Mean Corpuscular Hemoglobin 34.3 pg (28.0-33.3); Mean Platelet Volume 10.8 fL (9.4-12.4); Monocytes # 1.1 K/mcL (0.0-1.3); Monocytes % 9.1 %; Neutrophils # 8.4 K/mcL (1.6-8.9); Platelet Count 283 K/mcL (140-400); Red Blood Count 4.08 M/mcL (3.82-4.97); Red Cell Distribution Width 12.7 % (11.5-14.5); White Blood Count 12.5 K/mcL (4.3-11.1)
[2022-01-07 10:10] LABS: BUN/Creatinine Ratio 16 (6-26); Blood Urea Nitrogen 8 mg/dL (8-23); Calcium 9.5 mg/dL (8.6-10.3); Carbon Dioxide 25 mEq/L (23-29); Chloride 104 mEq/L (98-107); Glucose 165 mg/dL (70-105); Magnesium 1.9 mg/dL (1.6-2.6); Osmolality,Calculated 286 (280-300); Potassium 3.5 mEq/L (3.5-5.1); Sodium 137 mEq/L (136-145); eGFR For African Americans > 60 (> 60); eGFR For Non-African Americans > 60 (> 60)
[2022-01-07 10:28] VITALS: BP 129/73; PULSE 80; TEMP 98
== END 2022-01-07 14:02 | disposition home or self-care (01) | DRG 871 ==
LOC: EMEROOARM 16:19 → 3BNU 16:19
PROVIDERS: ADMIT Internal Medicine; ATTEND Internal Medicine